=== PATIENT | male | born 1975 | race Caucasian/White ===

== ENCOUNTER → 2017-05-27 | Outpatient (CLI) | payer OTHER ==
--- NOTE | 2017-05-27 15:48 | DIAGNOSTIC IMAGING REPORT ---
CHEST 2 VIEWS ROUTINE CLINICAL HISTORY: M69.21 dyspnea COMPARISON STUDY: No previous studies for comparison. FINDINGS: The bones soft tissues and hemidiaphragms are normal. The cardiomediastinal silhouette is normal. The lungs are clear. The pulmonary vasculature is normal. IMPRESSION: Negative chest. The above report was generated using voice recognition software. It may contain grammatical, syntax or spelling errors. Electronically signed by: Christiano Cabrera M.D. 05/27/2017 3:47 PM Dictated Date/Time: 05/27/2017 3:43 PM
== END | disposition home or self-care (01) ==
LOC: C.RAD1850 15:36
PROVIDERS: ATTEND Family Medicine
DX: C69.21 Malignant neoplasm of right retina (principal)

== ENCOUNTER → 2017-05-30 | Outpatient (CLI) | payer OTHER ==
--- NOTE | 2017-05-30 08:51 | DIAGNOSTIC IMAGING REPORT ---
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 COMPARISON: None. FINDINGS: Liver morphology is normal. Note is made of a 1.2 x 1.1 x 0.8 cm echogenic right hepatic lobe lesion. This contains no color flow. There is a 6 mm left hepatic lobe cyst. No additional hepatic lesions are identified. There are no gallstones. There is no biliary ductal dilatation. There is no right hydronephrosis. The pancreas is within normal limits. IMPRESSION: 1. 1.2 cm echogenic right hepatic lobe lesion. The sonographic appearance favors a hemangioma. Metastatic disease could appear similar although is less likely. An MRI of the liver may be of benefit in further characterization. 2. No gallstones or biliary ductal dilatation. Electronically signed by: Olegario Kumar M.D. 05/30/2017 8:50 AM Dictated Date/Time: 05/30/2017 8:46 AM
== END | disposition home or self-care (01) ==
LOC: C.ULTRBC 08:21
PROVIDERS: ATTEND Family Medicine
DX: C69.21 Malignant neoplasm of right retina (principal)

== ENCOUNTER → 2017-06-26 | Outpatient (CLI) | payer OTHER ==
[~2017-06-26] MED LIST: GADOXETATE DISODIUM (NON-WT BASED PROCEDURE) IV PRN
--- NOTE | 2017-06-26 21:04 | DIAGNOSTIC IMAGING REPORT ---
ABDOMEN COMBO CLINICAL HISTORY: 41 years-old Male presenting with LIVER CA, MALIGNANT NEOPLASM OF RT CHOROID, history of melanoma. TECHNIQUE: Multisequence, multiplanar MR imaging of the abdomen was performed before and after the administration of intravenous contrast. IV contrast: 10 mL of Eovist. COMPARISON: Abdominal ultrasound from 05/30/2017. FINDINGS: Localizer images: Unremarkable. Lung bases: Lungs and pleural spaces clear. Normal heart size. No pericardial or pleural effusion. Liver: Normal morphology. No evidence of hepatic steatosis. 10 mm lesion in segment 6 is mildly T2 hyperintense, does not retain contrast on the hepatobiliary specific phase and does not restrict diffusion. An additional well-defined T2 hyperintense lesions are nonenhancing and consistent with hepatic cyst or hamartoma. Conventional hepatic arterial anatomy. Biliary: No intrahepatic or extrahepatic biliary ductal dilatation. Normal gallbladder. Pancreas: Normal. Spleen: Normal. Adrenal glands: Normal. Kidneys and ureters: Normal. No hydronephrosis. Bowel: Moderate stool burden primarily in the right colon. Feces in the distal small bowel suggest delayed transit. No bowel obstruction. Peritoneal cavity: No free fluid or intraperitoneal gas. Lymph nodes: No enlarged lymph nodes in the abdomen. Vasculature: Aorta and IVC patent and normal in caliber. Abdominal wall: Normal. Musculoskeletal: Normal. IMPRESSION: 1. 10 mm lesion in segment 6 does not retain contrast on the hepatobiliary specific phase and does not demonstrate T2 hyperintensity indicative of a cyst. This could suggest a metastatic lesion versus hemangioma. This delineation is best assessed with Gadavist rather than Eovist. In the less, the absence of restricted diffusion of the lesion is suggestive of benignity. This likely represents a hemangioma. Electronically signed by: Iam Romeo M.D. 06/26/2017 9:03 PM Dictated Date/Time: 06/26/2017 8:55 PM
== END | disposition home or self-care (01) ==
LOC: C.MRI 19:23
PROVIDERS: ATTEND Family Medicine
DX: D37.6 Neoplasm of uncertain behavior of liver, gallbladder and bile ducts (principal); C69.31 Malignant neoplasm of right choroid

== ENCOUNTER → 2017-07-03 | Outpatient (CLI) | payer OTHER ==
[~2017-07-03] MED LIST changes: +GADAVIST IV PRN; -GADOXETATE DISODIUM (NON-WT BASED PROCEDURE) IV PRN
--- NOTE | 2017-07-03 19:36 | DIAGNOSTIC IMAGING REPORT ---
LIVER MRI WITH AND WITHOUT INTRAVENOUS CONTRAST HISTORY: History of melanoma. Evaluate liver lesions. TECHNIQUE: Multiplanar multisequence MRI of the liver was performed both before and after the intravenous administration of 7 cc of Gadavist. COMPARISON STUDY: Liver MRI 06/26/2017. FINDINGS: No change in the 1 cm slightly T2 hyperintense, T1 hypointense enhancing lesion within the segment 6 right hepatic lobe lesion. This demonstrates filling within the delayed sequences. Therefore, this is consistent with a hemangioma. A few additional scattered tiny lesions within the liver remain stable and are T2 hyperintense and nonenhancing. Therefore, these are consistent with cysts. Dominant lesion within the left hepatic lobe measures 9 mm. No new hepatic lesions identified. The spleen, kidneys, adrenal glands, pancreas, and gallbladder are unremarkable. No retroperitoneal lymphadenopathy. The lung bases are clear. No suspicious osseous lesions. IMPRESSION: 1. Stable 1 cm lesion within segment 6 of the liver consistent with a hemangioma. 2. Additional subcentimeter lesions are consistent with cysts. 3. No new hepatic lesions identified. 4. No evidence for metastatic disease. Electronically signed by: Edward Sanchez M.D. 07/03/2017 7:35 PM Dictated Date/Time: 07/03/2017 7:27 PM
== END | disposition home or self-care (01) ==
LOC: C.MRI 17:41
PROVIDERS: ATTEND Family Medicine
DX: D37.8 Neoplasm of uncertain behavior of other specified digestive organs (principal)